=== PATIENT | female | born 1940 | race Caucasian/White ===

== ENCOUNTER → 2017-04-30 | Outpatient (CLI) | payer MEDICARE, OTHER ==
[~2017-04-30] MED LIST: ACET-704 PO; ALEN70TA3 PO; ASPI-482 PO; ATOR20TA PO; ESOM20CA PO; ESOM40CA PO; EZET10TA18 PO; LEVO25TA55 PO; LISI10TA2 PO; LISI2.5T PO; OSPE60TA2 PO; PRAV20TA2 PO
--- NOTE | 2017-05-01 09:42 | KCIC ---
DATE: 04/30/2017 EXAM: MAMMO LYN SCREENING BILATERAL HISTORY: Routine screening COMPARISON: 02/28/2016 The breast parenchyma is heterogeneously dense, which could reduce sensitivity of mammography. Breast parenchyma level C. FINDINGS: 2-D and 3-D tomosynthesis imaging was performed in CC and MLO projections. No new or enlarging breast densities are seen. There is a stable benign-appearing lymph node type density in the right axillary tail region. Benign type calcifications are again noted. No suspicious microcalcifications have developed. IMPRESSION: Stable mammograms without evidence of malignancy. BI-RADS CATEGORY: 2 BENIGN FINDING(S) RECOMMENDED FOLLOW-UP: 12M 12 MONTH FOLLOW-UP PQRS compliance statement: Patient information was entered into a reminder system with a target due date for the next mammogram. Mammography is a sensitive method for finding small breast cancers, but it does not detect them all and is not a substitute for careful clinical examination. A negative mammogram does not negate a clinically suspicious finding and should not result in delay in biopsying a clinically suspicious abnormality. "Our facility is accredited by the [employer] Mammography Program."
== END ==
LOC: KCIC MAMMO 14:49
PROVIDERS: ATTEND Family Medicine
DX: Z12.31 Encounter for screening mammogram for malignant neoplasm of breast (principal)
CPT/HCPCS: 77063; G0202; 77067

== ENCOUNTER → 2018-04-08 | Outpatient (CLI) | payer MEDICARE, OTHER ==
--- NOTE | 2018-04-08 15:05 | RAD ---
Lumbar spine with lateral flexion and extension views, 4 views, 04/08/2018: HISTORY: Spondylolisthesis Lateral views were obtained in a supine position as well as in a standing position with flexion and extension. An AP view was also obtained. There is a mild left convexity lumbar scoliosis. There is moderate disc space narrowing and marginal spurring at multiple levels. There are extensive degenerative changes involving the facet joints in the lower lumbar spine. No fracture is identified. There is approximately 8-9 mm of anterior subluxation of L5 relative to S1 which does not change significantly with flexion or extension. This does appear to have worsened since the MR study of 09/12/2015. Extensive aortoiliac calcific plaquing is present. IMPRESSION: 1. Moderately severe multilevel degenerative change. 2. Grade 1 spondylolisthesis at L5-S1. 3. No acute abnormality is detected. Electronically signed by: Stan Gallardo MD (04/08/2018 3:02 PM) [facility]
== END | disposition home or self-care (01) ==
LOC: RAD 11:59
PROVIDERS: ATTEND Neurological Surgery
DX: M43.17 Spondylolisthesis, lumbosacral region (principal); M47.896 Other spondylosis, lumbar region; M41.86 Other forms of scoliosis, lumbar region
CPT/HCPCS: 72110

== ENCOUNTER → 2018-04-20 | Outpatient (CLI) | payer MEDICARE, OTHER ==
[~2018-04-20] MED LIST changes: +ACET-1571 PO; +CALC500T30 PO; +CHOL10003 PO; +CRESTOR10 MG PO; +GLUC1CAP48 PO; +LEVO75TA5 PO; +LISI1TAB5 PO; +METH-38 PO; +OMEG-165 PO; +OMEP20TA63 PO; +OXYC-323 PO; +UBID50CA5 PO; +VIT1TABL32 PO
--- NOTE | 2018-04-20 15:28 | EKG ---
[facility] [address] [place] [address] Test Date: 2018-04-20 Test Time: 15:21:46 Pat Name: YOLY MANNING Department: Room: Gender: F Mechanic'S Assistant: AT : 1940 Requested By: ANDREA CALLE Order Number: [id number] Reading MD: Edgar Reynoso Measurements Intervals [place] Rate: 49 P: -90 IL: 164 QRS: -20 QRSD: 94 T: 29 QT: 426 QTc: 387 Interpretive Statements SINUS BRADYCARDIA LEFTWARD AXIS OTHERWISE NORMAL ECG Electronically Signed On 04-21-2018 11:14:26 CDT by Edgar Reynoso
[2018-04-20 15:57] LABS: BASO # 0.1 x10^3/uL (0.0-0.2); BASO % 1 % (0-3); EOS # 0.1 x10^3/uL (0.0-0.7); EOS % 2 % (0-3); HEMATOCRIT 39.4 % (36.0-47.0); HEMOGLOBIN 13.4 g/dL (12.0-15.5); LYMPH # 2.7 x10^3/uL (1.0-4.8); LYMPH % 33 % (24-48); MEAN CORPUSCULAR HEMOGLOBIN 31 pg (25-35); MEAN CORPUSCULAR HGB CONC 34 g/dL (31-37); MEAN CORPUSCULAR VOLUME 92 fL (79-100); MONO # 0.7 x10^3/uL (0.0-1.1); MONO % 9 % (0-9); NEUT # 4.6 x10^3uL (1.8-7.7); NEUT % 56 % (31-73); PLATELET COUNT 229 x10^3/uL (140-400); RED BLOOD COUNT 4.27 x10^6/uL (3.50-5.40); RED CELL DISTRIBUTION WIDTH 12.8 % (11.5-14.5); WHITE BLOOD COUNT 8.2 x10^3/uL (4.0-11.0)
[2018-04-20 16:21] LABS: ALBUMIN 3.8 g/dL (3.4-5.0); ALBUMIN/GLOBULIN RATIO 0.9 (1.0-1.7); CALCIUM 10.3 mg/dL (8.5-10.1); CREATININE 1.1 mg/dL (0.6-1.0); GFR 47.9; POTASSIUM 5.3 mmol/L (3.5-5.1); TOTAL BILIRUBIN 0.2 mg/dL (0.2-1.0); TOTAL PROTEIN 7.9 g/dL (6.4-8.2)
== END | disposition home or self-care (01) ==
LOC: SURGPAT 13:32
PROVIDERS: ATTEND Neurological Surgery
DX: Z01.818 Encounter for other preprocedural examination (principal); M48.061 Spinal stenosis, lumbar region without neurogenic claudication; M54.16 Radiculopathy, lumbar region; I10 Essential (primary) hypertension
CPT/HCPCS: 36415; 80053; 85025; 87641; 93005

== ENCOUNTER 2018-04-27 06:57 | Day surgery (SDC) | payer MEDICARE, OTHER ==
--- NOTE | 2018-04-24 17:05 | PREOP HP ---
DATE OF SERVICE: 04/27/2018. DATE OF SURGERY: 04/27/2018. HISTORY OF PRESENT ILLNESS: The patient is a pleasant 77-year-old who has difficulty with pain in the left hip and left buttock as well as left posterolateral thigh. She notes pain in the left lateral leg and ankle. There is no problem on the right side. The problem started a few years ago and has been gradually progressive. She says that in the mornings, she does not have much trouble with pain, but as the day progresses, the pain becomes more and more severe. When she is experiencing severe pain, if she sits for a few minutes, the pain improves dramatically. She has been taking Tylenol with Codeine as well as Percocet to try and control the pain. She has undergone physical therapy as well as epidural steroid injections. She did have some temporary relief with the first and second epidural steroid injections. 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 PAST SURGICAL HISTORY: Hysterectomy in 1984, cholecystectomy in 1997, meniscus repair in 2004, fatty tumor removal in 2005, cystocele in her bladder in 2003, cataract surgery in 2009, possible TIA in 2002, possible TIA in 2016. FAMILY HISTORY: Cancer, heart problems or disease, hypertension, spine problems. SOCIAL HISTORY: Retired. . Rarely exercises. Denies substance abuse. Smokes 3/4 of a pack of cigarettes per day and has for 10 years. Drinks coffee and soda. ALLERGIES: VANCOMYCIN AND TRIMETHOPRIM. CURRENT MEDICATIONS: Lisinopril, Crestor, Synthroid, Prilosec, Percocet, aspirin, CoQ10, vitamin D3, calcium, Ocuvite, vitamin C, fish oil, B12 fast dissolve, glucosamine chondroitin complex, stool softener, MiraLax, cranberry, Tylenol No. 3. REVIEW OF SYSTEMS: A 12-point review of systems was obtained and is noncontributory except for that mentioned above. PHYSICAL EXAMINATION: NEUROSURGERY EXAMINATION: GENERAL APPEARANCE: Alert, pleasant, no acute distress. HEAD: Normocephalic and atraumatic. SKIN: Warm and dry. MUSCULOSKELETAL: Lumbar paraspinal muscle bulk is normal, restricted range of motion of the lumbar spine, [id number] tenderness of lower lumbar spine with palpation. Normal range of motion of the lower extremities bilaterally. EXTREMITIES: No clubbing, cyanosis or edema. NEUROLOGIC: Alert and oriented x 3, normal recent and remote memory, strength 5/5 in bilateral lower extremities. Sensory was intact to light touch in bilateral lower extremities. Reflexes are present and symmetric in the lower extremities bilaterally. Negative straight leg raising bilaterally, normal gait. IMAGING: On imaging studies, there are a number of abnormalities. She does have a degenerative scoliosis. At L3-L4, there is a central left disk herniation. At L4-L5, there is severe left lateral recess narrowing. At L5-S1, there is lateral recess narrowing, which is pronounced on the left. There is also a grade 1 anterolisthesis at L5-S1. ASSESSMENT/ PLAN: The patient had lateral recess stenosis, which is pronounced at L4-L5 and L5-S1 on the left. There is an element of foraminal narrowing at L5-S1 on the left. At this point, I am going to have lumbar flexion and extension films performed. Should these be negative, my recommendation will be to proceed with microdecompressive surgery at L4-L5 on the left as well as L5-S1 on the left with decompression of the lateral recess at 5-1 as well as partial decompression of the foramen to be sure that the left L5 root is free. After reviewing lumbar flexion and extension x-rays, I do not see significant motion at L5-S1. I will proceed with surgery as previously discussed. I reviewed postoperative restrictions and expected postoperative course. She understands. She would like to proceed. We will make the arrangements. ANDREA CALLE MD DR: ALLI/sol JOB#: [id number] / [id number] DENISE
[~2018-04-27] VITALS: Ht 160 cm; Wt 85.7 kg
[~2018-04-27 06:57] MED LIST changes: -ACET-1571 PO; +BACITRACIN 50,000 UNIT in IV NORMAL SALINE 1000ML BAG 1,000 ML IRR ONE; +BUPIVAC MPF-EPI 0.5%-1:200000 30 ML VIAL. ONE; +GELATIN SPONGE SIZE 100. ONE; +KETOROLAC 60 MG/2 ML INJ FOR OR. ONE; -METH-38 PO; +THROMBIN TOPICAL 20,000 UNIT SPRAY.SYRN KIT TP ONE
[2018-04-27] MEDS ORDERED: PROCHLORPERAZINE 10 MG/2 ML VIAL. IV PRN (07:00)
[2018-04-27] MEDS ORDERED: MORPHINE SULFATE 2 MG/ML VIAL. IV PRN (07:00)
[2018-04-27] MEDS ORDERED: LIDOCAINE 1% PF 2 ML VIAL. ID PRN (07:00)
[2018-04-27] MEDS ORDERED: IV RINGERS,LACTATED 1000ML 1,000 ML IV SCH (07:00)
[2018-04-27] MEDS ORDERED: fentaNYL PF VIAL 100 MCG/2 ML VIAL IV PRN ×2 (07:00)
[2018-04-27] MEDS ORDERED: ONDANSETRON PF 4 MG/2 ML VIAL. IV PRN (07:00)
[2018-04-27] MEDS ORDERED: HYDROmorphone 2 MG/ML VIAL IV PRN (07:00)
[2018-04-27] MEDS ORDERED: PROPOFOL 100 ML IV ONE (07:02)
[2018-04-27] MEDS ORDERED: ACET-1571 PO (07:38)
[2018-04-27] MEDS ORDERED: GLYCOPYRROLATE 1 MG/5 ML VIAL. ONE (08:11)
[2018-04-27] MEDS ORDERED: REMIFENTANIL 2 MG VIAL. IV ONE (08:12)
[2018-04-27] MEDS ORDERED: ROCURONIUM 50 MG/5 ML VIAL. ONE (08:12)
[2018-04-27] MEDS ORDERED: PHENYLEPHRINE 10 MG/ML VIAL. ONE ×2 (08:12→08:13)
[2018-04-27] MEDS ORDERED: NEOSTIGMINE METHYLSULFATE 5 MG/5 ML SYRINGE. ONE (08:12)
[2018-04-27] MEDS ORDERED: fentaNYL PF VIAL 100 MCG/2 ML VIAL ONE ×2 (08:12→11:48)
[2018-04-27] MEDS ORDERED: MIDAZOLAM HCL/PF 2 MG/2 ML VIAL. ONE (08:12)
[2018-04-27] MEDS ORDERED: ePHEDrine PF IN SALINE 50 MG/5 ML DISP.SYRIN IV ONE (09:26)
--- NOTE | 2018-04-27 11:53 | DISCH ---
DISCHARGE INSTRUCTIONS Condition on Discharge Condition on Discharge: Stable Activity After Discharge Activity Instructions for Disc: Activity as tolerated, Avoid exertion Other activity instructions: no driving for a week Bathing Instructions: Shower-keep dressing dry Lifting Instructions after Dis: No heavy lifting, No pulling or pushing, Do not lift >10 pounds Diet after Discharge Additional Diet Restrictions: resume home diet Wound Incision Care Wound/Incision Care: Ice to area for comfort Other wound/incision instructi: may remove dressing in 48 hrs if dry then may shower- no soaking Contacting the after DC Call your doctor for: Concerns you may have Follow-Up Follow up with: Dr. Calle's nurse in 2 weeks [phone] ANDREA CALLE MD Apr 27, 2018 11:53
[2018-04-27] MEDS ORDERED: METH-38 PO (11:59)
[2018-04-27] MEDS ORDERED: oxyCODONE/APAP 5/325 1 TAB TABLET PO ONE ×2 (12:30)
--- NOTE | 2018-04-27 12:41 | OP ---
DATE OF SURGERY: 04/27/2018 PREOPERATIVE DIAGNOSES: Lateral recess stenosis, L4-L5 and L5-S1, with foraminal narrowing, L5-S1 as well on the left and left lumbar radiculopathy. OPERATION PERFORMED: Hemilaminotomy with microdecompression, L4-L5; hemilaminotomy with microdecompression, L5-S1 with medial transforaminal exposure. The operation was done with EMG monitoring, fluoroscopy and microscopic dissection. SURGEON: Jovanny Calle M.D. CERTIFED REFRIGERATION OPERATOR: LARON Dewitt, assisted with the surgery. She assisted with the exposure, the microdecompression at both levels as well as the closure. OPERATIVE INDICATIONS: The patient is a very pleasant 77-year-old who developed intractable back and left leg pain, which failed conservative measures. On imaging, she got the above-mentioned findings and I recommended lumbar microsurgery after she failed conservative measures. She understood the surgery and the risks, she wished to go ahead. DESCRIPTION OF PROCEDURE: Following general endotracheal anesthesia, the patient was positioned prone with the Richard table. Her lumbar region was prepped and draped in the standard fashion. GENA hose and AV impulse boots were applied for DVT prophylaxis. The microscope was draped, fluoroscope was draped and brought in the field. Monitoring was established. Ancef 2 grams were given less than 1 hour prior to initiation of the surgery. Using fluoroscopic guidance, an incision was made from L4-S1. I dissected it down through the skin and subcutaneous tissue, reflected the paraspinal muscles and placed a Belcourt micro disc retractor. I directed my attention to L5-S1, bringing in the high-speed air drill and using microscopic technique. Through the microscope with magnification, I burred down a generous hemilaminotomy. I trimmed away very thickened ligamentum flavum and performed a partial foraminotomy. I worked superiorly above the disc space and laterally. There was considerable foraminal narrowing and I extended the proximal foramen and peeled back and removed a large spur which was compressing the L5 root as it rounded the pedicle and moved laterally. Once this was accomplished, the entire region was well decompressed. I then moved superiorly to L4-L5 and in a similar fashion, burred down a generous hemilaminotomy, trimmed away thickened ligamentum flavum. I then performed partial foraminotomy at this level. The dura was scarred to the overlying ligament and it took careful dissection with micro instruments to develop a plane between the dura and the ligament and free up the dura inferiorly that took some time to peel away the thickened ligament, which was compressing the dura and the L5 root, but as I worked, I was able to completely decompress the entire region. At both levels, the disc was bulging slightly, but extremely firm and no discectomy was warranted. There was a small spondylolisthesis at L5-S1. Following the decompression, then I explored carefully. I irrigated copiously. There was no evidence of any further compression. Hemostasis was excellent. I did use a bipolar cautery judiciously as well as bone wax where were necessary. I removed the retractor, obtained hemostasis in the muscle and irrigated further. Then I closed the wound in layers with absorbable suture and skin was closed with 4-0 subcuticular stitch. The operation went very well and the patient was awakened uneventfully. I was quite pleased with the surgery. JOVANNY CALLE MD DR: ALLI/sol JOB#: [id number] / [id number] DENISE
[2018-04-27 13:20] VITALS: BP 134/58
--- NOTE | 2018-04-28 13:10 | PATHOLOGY ---
[facility] Accession Number: [id number] . 01 Material submitted: . LUMBAR DECOMPRESSION . 01 Clinical history: . Lumbar stenosis, radiculopathy . 02 Diagnosis: Segments of fibrocartilaginous, adipose, and skeletal muscle tissue and bone, lumbar decompression: - Degenerative changes of fibrocartilaginous tissue. P/04/28/2018 . 02 Comment: There is no evidence of an acute inflammatory process or malignancy. (JPM:[facility] 04/28/2018) . 02 Electronically signed: . Pete Gage MD, Pathologist NPI- [id number] . 01 Gross description: . Received in formalin labeled "Dragieff, Jacqueline, lumbar decompression," are several pieces of glistening, fibrous tissue measuring 3.9 x 2.4 x 1.6 cm in aggregate dimensions, containing small fragments of possible bone. The tissue submitted representatively in cassette A1, following decalcification. (TSD; 04/27/2018) TOB/TOB . 02 Pathologist provided ICD-10: M51.36 . 02 CPT . 373136, [id number] Specimen Comment: A courtesy copy of this report has been sent to Specimen Comment: [phone], . Specimen Comment: Report sent to Dr.HOLLADAY Maravilla Performed at: 01 [facility] [address], [place], [place] [id number] MD Blayne Quiroga MD Phone: [phone] Performed at: 02 [facility] [address], [place] [id number] MD Pete Gage MD Phone: [phone]
== END 2018-04-27 13:45 | disposition home or self-care (01) ==
LOC: SURG 06:57
PROVIDERS: ATTEND Neurological Surgery
DX: M48.062 Spinal stenosis, lumbar region with neurogenic claudication (principal); M43.16 Spondylolisthesis, lumbar region; M54.16 Radiculopathy, lumbar region; Z88.1 Allergy status to other antibiotic agents; Z88.6 Allergy status to analgesic agent; I10 Essential (primary) hypertension; Z90.49 Acquired absence of other specified parts of digestive tract; Z90.710 Acquired absence of both cervix and uterus; Z98.890 Other specified postprocedural states; Z82.49 Family history of ischemic heart disease and other diseases of the circulatory system; F17.210 Nicotine dependence, cigarettes, uncomplicated; Z79.899 Other long term (current) drug therapy; Z79.82 Long term (current) use of aspirin; Z98.42 Cataract extraction status, left eye; Z98.41 Cataract extraction status, right eye; Z96.1 Presence of intraocular lens
CPT/HCPCS: 63047; 63048; 88304; 88311; 97162; 97530; A7015; G8978; G8979; G8980; J0690; J1885; J2250; J2405; J2704; J2710; J3010; J3490; J7030; J7120; 76000

== ENCOUNTER → 2018-06-10 | Outpatient (CLI) | payer MEDICARE, OTHER ==
[~2018-06-10] MED LIST changes: +ACET-1571 PO; -BACITRACIN 50,000 UNIT in IV NORMAL SALINE 1000ML BAG 1,000 ML IRR ONE; -BUPIVAC MPF-EPI 0.5%-1:200000 30 ML VIAL. ONE; -GELATIN SPONGE SIZE 100. ONE; -KETOROLAC 60 MG/2 ML INJ FOR OR. ONE; +METH-38 PO; -THROMBIN TOPICAL 20,000 UNIT SPRAY.SYRN KIT TP ONE
--- NOTE | 2018-06-10 17:41 | KCIC ---
Bilateral digital screening mammograms with 3-D tomosynthesis: Reason for examination: Routine screening. Comparison is made to previous studies dated 04/30/2017, 02/28/2016 and 01/30/2015. Bilateral mammograms in CC and oblique projections were obtained with 2-D imaging and 3-D tomosynthesis imaging on a Siemens Inspiration unit and reviewed on the workstation. Interpretation was made with the benefit of CAD. The skin and nipples show no abnormalities. No abnormal axillary lymph nodes are seen. The breast parenchyma is extremely dense. (Breast density: Category D.) There continue to be small nodular densities seen bilaterally which have not changed. There are no new dominant masses, suspicious calcifications or architectural distortion. Impression: No evidence of malignancy. Recommend routine screening. Your patient's mammogram demonstrates that she has dense breast tissue (breast density category C or D), which could hide abnormalities, and if she has other risk factors for breast cancer that have been identified, she might benefit from supplemental screening tests that may be suggested by you as her ordering physician. Dense breast tissue, in and of itself, is a relatively common condition. Therefore, this information is not provided to cause undue concern, but rather to raise your awareness and to promote discussion with your patient regarding the presence of other risk factors, in addition to dense breast tissue. Your patient's mammography results will be sent to her. BI-RAD Category 2: Benign. "Our facility is accredited by the [employer] Mammography Program." This patient's information has been entered into a reminder system for the patient to be notified with the results of her examination and a target date for the next mammogram. Electronically signed by: Sisi De La Fuente MD (06/10/2018 5:38 PM) [facility]
== END | disposition home or self-care (01) ==
LOC: KCIC MAMMO 13:56
PROVIDERS: ATTEND Family Medicine
DX: Z12.31 Encounter for screening mammogram for malignant neoplasm of breast (principal)
CPT/HCPCS: 77063; 77067

== ENCOUNTER → 2019-06-14 | Outpatient (CLI) | payer MEDICARE, OTHER ==
[2018-09-03 10:49] VITALS: BP 119/40
[~2019-06-14] MED LIST changes: +DOXY100C2 PO; +DULO30CA2 PO; -EZET10TA18 PO; +EZET10TA20 PO; +LISI1TAB19 PO; -LISI1TAB5 PO; +ONDA4TAB7 PO; -OXYC-323 PO; +OXYC1TAB15 PO; +Pantoprazole PO; +TRAM50TA PO; +VALA500T PO
--- NOTE | 2019-06-14 19:34 | KCIC ---
Bilateral digital screening mammograms with 3-D tomosynthesis: Reason for examination: Routine screening. Comparison is made to previous studies dated 06/10/2018 and 04/30/2017. Bilateral mammograms in CC and oblique projections were obtained with 2-D imaging and 3-D tomosynthesis imaging on a Siemens Inspiration unit and reviewed on the workstation. Interpretation was made with the benefit of CAD. The skin and nipples show no abnormalities. No abnormal axillary lymph nodes are seen. The breast parenchyma is extremely dense. (Breast density: Category D.) There continued be nodular asymmetries which are unchanged. There are no new dominant masses, suspicious calcifications or architectural distortion. Benign calcifications are present. Impression: No evidence of malignancy. Recommend routine screening. Your patient's mammogram demonstrates that she has dense breast tissue (breast density category C or D), which could hide abnormalities, and if she has other risk factors for breast cancer that have been identified, she might benefit from supplemental screening tests that may be suggested by you as her ordering physician. Dense breast tissue, in and of itself, is a relatively common condition. Therefore, this information is not provided to cause undue concern, but rather to raise your awareness and to promote discussion with your patient regarding the presence of other risk factors, in addition to dense breast tissue. Your patient's mammography results will be sent to her. BI-RAD Category 2: Benign. "Our facility is accredited by the [employer] Mammography Program." This patient's information has been entered into a reminder system for the patient to be notified with the results of her examination and a target date for the next mammogram. Electronically signed by: Sisi De La Fuente MD (06/14/2019 7:31 PM) [id number]
== END | disposition home or self-care (01) ==
LOC: KCIC MAMMO 15:00
PROVIDERS: ATTEND Family Medicine
DX: Z12.31 Encounter for screening mammogram for malignant neoplasm of breast (principal); N64.89 Other specified disorders of breast
CPT/HCPCS: 77063; 77067